=== PATIENT | male | born 1955 | race Caucasian/White ===

== ENCOUNTER → 2018-08-13 | Outpatient (CLI) | payer MEDICARE, MEDICAID ==
[~2018-08-13] MED LIST: ATENOLOL 25 MG25 M1 PO; CENTRUM COMPLE1 EACH PO; CLONAZEPAM PO; ENDOCET 5-3251 EACH PO; FISH OIL 1,0001 EAC5 PO; GRAPE SEED100 MG PO; HYDROCODON-ACE1 EAC8 PO; LO-DOSE ASPIRIN81 M1 PO; LOPRESSOR 50 MG50 M1 PO; MEVACOR 20 MG T20 MG PO; NITROSTAT0.4 MG SL; SOMA250 MG PO; ZESTRIL10 MG PO
[2018-08-13 12:01] LABS: AMP/METHAMP Negative (Negative); BARBITURATES Negative (Negative); BENZODIAZEPINES Negative (Negative); COCAINE Negative (Negative); METHADONE Negative (Negative); OPIATES POSITIVE (Negative); PCP Negative (Negative); THC POSITIVE (Negative)
[2018-08-13 12:02] LABS: CHOLESTEROL 167 mg/dL (<200); HDL CHOLESTEROL 32 mg/dL (>40); LDL CHOLESTEROL 87 mg/dL (<100); TC:HDL 5.2 Ratio (Not establshd); TRIGLYCERIDE 243 mg/dL (<150); VLDL 49 mg/dL (<40)
[2018-08-13 12:03] LABS: SERUM ASSESSMENT Clear
== END ==
LOC: M.LAB 11:38
PROVIDERS: Internal Medicine Cardiovascular Disease
DX: E78.2 Mixed hyperlipidemia (principal); G89.4 Chronic pain syndrome; I10 Essential (primary) hypertension; Z79.891 Long term (current) use of opiate analgesic

== ENCOUNTER 2020-03-22 20:12 | Inpatient (IN) | payer MEDICARE, MEDICAID ==
[~2020-03-22] VITALS: Ht 177.8 cm; Wt 81.6 kg
--- NOTE | ~2020-03-22 | EMS ---
[facility] [place] [address] EMS Patient Care Report Name: CORINNE NICHOLSON Room: [address] IN ..#: [id number] Admission: 03/22/20 Attend Phys: Prabhakar Do MD Discharge: Date of : 53 Report #: [id number] THIS REPORT FOR: //name// Report Transmitted: 03/23/2020 06:47 EMS Care Summary [facility] - Ambulance Incident [id number] @ 03/22/2020 15:35 Incident Location [address] [facility] Patient CORINNE NICHOLSON Male, 64 Years 1955 Patient Address [address] [place] [address] Patient History Hypertension (HTN),Cardiac - Stent, Patient Allergies Other drug allergy,Simvastatin, Patient Medications Hydrocodone, Metoprolol, Clopidogrel, Lisinopril, Zolpidem, Carisoprodol, Chief Complaint CHEST PAIN Disposition Transported No Lights/[place] Dispatch Reason Transfer/Interfacility/Palliative Care Transported To [facility] Narrative SUBJECTIVE- PATIENT WAS SEEN AT [facility] ER AND ADMITTED FOR CHEST PAIN. AFTER HAVING CHEST PAIN ON THE FLOOR FOR THE SECOND TIME PATIENT WAS PLACED ON A NTG DRIP AT 1.5ML/HR AND MOVED TO ICU. PATIENT IS NOW PAIN FREE AND IS BEING TRANSFERRED TO [facility] FOR CONTINUED CARE. [facility] [address] [place] [address] EMS Patient Care Report Name: CORINNE NICHOLSON Room: [address] IN [facility]#: [id number] Admission: 03/22/20 Attend Phys: Prabhakar Do MD Discharge: Date of : 53 Report #: [id number] OBJECTIVE- FOUND PATIENT IN ICU ROOM. PATIENT IS ALERT AND IN NO DISTRESS. PATIENT HAS AN IV IN THE LEFT ARM AND IS ON A NTG DRIP AT 1.5ML/HR. ASSESS- PATIENT IS ALERT AND ORIENTED, SKIN WARM AND DRY, COLOR NORMAL, CAP REFILL LESS THAN TWO. NO CHEST PAIN, NO SOB, NO ABDOMINAL PAIN, LUNGS ARE CLEAR AND PUPILS ARE NORMAL. PLAN- RECEIVED PAPERWORK AND REPORT FROM RN. MADE PATIENT CONTACT. PATIENT WAS ABLE TO WALK A SHORT DISTANCE TO OUR STRETCHER WHERE HE WAS SECURED WITH ALL STRAPS. WE DID VITALS, O2 SAT, EKG(SR), CONTINUED THE NITRO DRIP DIRECTED. DURING TRANSPORT PATIENT RESTED WITH NO COMPLAINTS. UPON ARRIVAL AT [facility] THERE WAS NO CHANGE IN PATIENT CONDITION. GAVE PAPERWORK AND REPORT TO RN AND TURNED PATIENT OVER. Initial Vitals @19:59P: 74,R: 18,BP: 146/75,GCS: 15,SpO2: 98,Revised Trauma: 12, @19:11P: 65,R: 17,BP: 163/75,GCS: 15,SpO2: 96,Revised Trauma: 12, @18:34P: 62,R: 18,BP: 167/77,GCS: 15,SpO2: 97,Revised Trauma: 12, @19:38P: 63,R: 18,BP: 145/75,GCS: 15,SpO2: 97,Revised Trauma: 12, Assessments @18:25MENTAL:Time Oriented,Person Oriented,Event Oriented,Place Oriented,SKIN:HEENT:LUNG SOUNDS:ABDOMEN:PELVIS//GI:EXTREMITIES:Left Arm: No Abnormalities,Right Arm: No Abnormalities,Left Leg: No Abnormalities,Right Leg: No Abnormalities,PULSE:Radial: 2+ Normal,NEURO: Impression Chest Pain / Discomfort Procedures @18:25ALS AssessmentResponse: UnchangedSucceeded@[facility] cc () @18:353-Lead ECGResponse: UnchangedSucceeded@PTANitro Infusion - 1.5 - Intravenous Pump@18:30StretcherResponse: Unchanged Timeline BRIAR WOOD SORTER, cc Site: , [facility],Nitro Infusion - 1.5 - Intravenous Pump, 15:33,Call Received 15:35,Dispatched 18:13,En Route 18:15,On Scene 18:25,At Patient 18:25,ALS Assessment,Response: UnchangedSucceeded, 18:30,Stretcher,Response: Unchanged 18:34,BP: 167/77 M,PULSE: 62,RR: 18 R,SPO2: 97 Ox,ETCO2: ,BG: ,PAIN: ,GCS: 15, 18:35,3-Lead ECG,Response: UnchangedSucceeded, [place] [address] EMS Patient Care Report Name: CORINNE NICHOLSON Room: [address] IN [facility]#: [id number] Admission: 03/22/20 Attend Phys: Prabhakar Do MD Discharge: Date of : 53 Report #: [id number] 18:40,Depart Scene 19:11,BP: 163/75 M,PULSE: 65,RR: 17 R,SPO2: 96 Ox,ETCO2: ,BG: ,PAIN: ,GCS: 15, 19:38,BP: 145/75 M,PULSE: 63,RR: 18 R,SPO2: 97 Ox,ETCO2: ,BG: ,PAIN: ,GCS: 15, 19:59,BP: 146/75 M,PULSE: 74,RR: 18 R,SPO2: 98 Ox,ETCO2: ,BG: ,PAIN: ,GCS: 15, 20:10,At Destination 20:20,Transfer Patient 20:40,Call Closed 22:20,In District Disclaimer v1.1 Copyright 2020 [employer] This EMS Care Summary contains data elements from the applicable legal record (which may be displayed differently). It is designed to provide pertinent information for the following purposes: continuity of care, clinical quality, and state data reporting. The complete legal record is available to ED staff and administrators of the receiving hospital in [employer]'s Patient Tracker. All data is provided "as is."
[~2020-03-22 20:12] MED LIST changes: +CLONAZEPAM 0.50.5 M1 PO; -CLONAZEPAM PO; -GRAPE SEED100 MG PO; +GRAPE SEED50 MG PO; -LOPRESSOR 50 MG50 M1 PO; +LOPRESSOR50 PO; +LOVASTATIN 20 M20 MG PO; -MEVACOR 20 MG T20 MG PO
[2020-03-22 21:00] VITALS: BP 179/86
[2020-03-23] VITALS (15 sets, daily range): BP systolic 120–189; BP diastolic 59–88
[2020-03-23 04:13] LABS: MCH 30.5 pg (26.0-34.0); MCHC 33.4 g/dL (28.0-37.0); MCV 91.1 fL (80.0-100.0); MPV 8.3 fl. (7.2-11.1); RBC 4.61 mil/uL (4.50-6.00); RDW-CV 13.9 % (10.5-14.5); WBC 10.2 thou/uL (4.0-11.0)
[2020-03-23 04:59] LABS: ALBUMIN 3.5 g/dL (3.4-5.0); ALKALINE PHOSPHATASE 62 U/L (46-116); ANION GAP 8 mmol/L (7-16); BUN 12 mg/dL (7-18); CALCIUM 8.4 mg/dL (8.5-10.1); CHLORIDE 103 mmol/L (98-107); CO2 29 mmol/L (21-32); CREATININE 0.9 mg/dL (0.6-1.3); GLUCOSE 82 mg/dL (70-99); POTASSIUM 3.7 mmol/L (3.5-5.1); SGOT 16 U/L (15-37); SGPT 30 U/L (30-65); SODIUM 140 mmol/L (136-145); TOTAL BILIRUBIN 0.4 mg/dL (<0.1-1.0); TOTAL PROTEIN 7.2 g/dL (6.4-8.2); TROPONIN-I LEVEL <0.06 ng/mL (<0.06)
--- NOTE | 2020-03-23 05:43 | NUR ---
ASSESSMENT: PT TRANSFERRED FROM [place] IN [place] TO ROOM 214 AT APPROXIMATELY 2100. PT IS ALERT AND ORIENT TIMES FOUR. DENIES CP AT THIS TIME. SUNSHINE, UP AD JASPAL. BP WAS ELEVATED UPON ARRIVAL THEN DECREASED TO 124/70. DR. LONGORIA WAS NOTIFIED OF PT'S ARRIVAL. LABS WERE ORDERED. PT NPO AT ID FOR POSSIBLE CATH WITH [facility] FERRER TROP WAS NEGATIVE THIS AM. RECENT WA IN JAN 2020, CARE WAS DONE AT [facility]. CABG X FIVE IN 2010. SR PER MONITOR, DOES HAVE A LONG HX OF SMOKING AND BACK SURGERIES. PLEASANT INDIVIDUAL AWAITING SOME ANSWERS. DID NOT SLEEP WELL DURING THE NIGHT R/T PT NORMALLY TAKES SLEEP AIDS. MOST AM LABS WERE WNL. WILL CONTINUE TO MONITOR.
--- NOTE | 2020-03-23 12:37 | NUR ---
Pt is A&O. Resides at home with his . assists as needed, Pt has some herniated discs in lower back and a spinal plate between 5 and 6. Pt has a cane for mobility. No hx of HH or SNF. Goal [place]. Pt having a heart cath today. Pt's PCP is Dr Natalie Jacobs. Following.
--- NOTE | 2020-03-23 12:50 | NUR ---
RECIEVED REPORT AROUND 0730. [facility]. VS AND ASSESSMENT CHARTED. PT LYING IN BED. PT WENT TO CATH THIS AM. GAVE SABRINA RODRIGUEZ NS. SHE STARTED NEW IV IN LEFT WRIST. LEFT AC IV TAKEN OUT. HEART MONITOR ATTACHED AT . NO STENTS PLACED. PT ON BEDREST UNITL 1600 THEN UP ADLIB. POST CATH VS CHARTED. RIGHT GROIN SITE DRY, INTACT. NO COMPLAINTS OF PAIN. MEDS GIVEN PER MAR. CALL LIGHT WITHIN REACH. WILL CONTINUE TO MONITOR.
--- NOTE | 2020-03-23 17:56 | CARD ---
[address] [address] CARDIAC CATH REPORT Name: LYNCORINNE L Room: [address] IN [facility]#: [id number] Admission: 03/22/20 Attend Phys: Prabhakar Do MD Discharge: Date of : 53 Report #: [id number] THIS REPORT FOR: //name// cc: JOLENE - Cookie family physician/PCP JOLENE - Family physician unknown ~ APPROVED REPORT Study performed: 03/23/2020 08:21:25 Patient Details Patient Status: In-Patient Room #: The patient is a 64 year-old male Event Personnel Alex Holland Space Control Supervisor, Gordon Tillman Childers, James APPELLATE COURT JUDGE monitor RN Janette, Eagle Becerril APPELLATE COURT JUDGE scrub Procedures Performed cardiac cath Indication Abnormal ECG, Unstable angina , Chest pain Risk Factors Coronary Artery Disease Previous Procedures/Diagnoses Previous CABGPrevious PCI Procedure Narrative The patient was brought electively to the Cardiac Catheterization Laboratory and was prepped and draped in a sterile manner. The right femoral was infiltrated with 1% Lidocaine subcutaneous anesthesia. A [place] 6fr sheath was inserted into the right femoral artery. Coronary angiography was performed using coronary diagnostic catheters. The right coronary system was accessed and visualized with a Diagnostic - JR4 catheter. The left coronary system was accessed and visualized with a Diagnostic - JL4 catheter. The left ventricle was accessed and visualized with a Diagnostic - ANG PIG catheter. Left ventricular/Aortic Valve gradient assessed via catheter pullback. Left ventriculogram was performed in SANTOS projection. Closure device was deployed with a 6 Fr Mynx. The patient tolerated the procedure well and there were no complications associated with the procedure. There was no hematoma. LCB utilized for the SVG to the Diag, OM1, OM2. ALVARADO graft was visualized with [place] [address] CARDIAC CATH REPORT Name: CORINNE NICHOLSON Room: [address] IN [facility]#: [id number] Admission: 03/22/20 Attend Phys: Prabhakar Do MD Discharge: Date of : 53 Report #: [id number] the RCA was located with a JR4 catheter. Intraoperative Conscious Sedation Sedation start time: 1056 Case end Time: 1136 Fentanyl 50 mcg Versed 3 mg Fluoro Time: 5.9 minutes Dose: DAP 67667 cGycm2 854 mGy Contrast Type and Amount: Omnipaque 120 ml Coronary Angiography The patient's coronary anatomy is right dominant. [place] Artery Percent Stenosis Patent ALVARADO graft to the mid lad. Collaterals were noted from the lad to the distal rca. Patent SVG to a diagonal branch of the lad with a jump graft to the proximal and distal OM branches of the circumflex. Patent stents were noted in the ostium of the SVG, and in the sequential jump graft to the distal marginal branch. There was a 60% stenosis noted in the mid portion of the vein graft. Collateral were noted from the circumflex to the distal RCA. 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 Right Coronary chronically occluded proximally after the conus branch. Bridging collaterals were noted to the distal RCA Left Ventriculography The left ventricle is normal in size with normal contractility. The left ventricular ejection fraction is estimated to be 60-65%. Left ventricular wall motion abnormalities are not present. There is no mitral insufficiency. Hemodynamics The aortic pressure is 170/64 mmHg with a mean of 75 mmHg. The left ventricular pressure is 157/5 mmHg with a mean of mmHg. The left ventricular end diastolic pressure is 10 mmHg. There was no gradient across the aortic valve upon pullback. Pullback from the left ventricle to the aorta revealed no gradient [place] [address] CARDIAC CATH REPORT Name: ALE NICHOLSONKENNETH Jarrett Room: [address] IN [facility]#: [id number] Admission: 03/22/20 Attend Phys: Prabhakar Do MD Discharge: Date of : 53 Report #: [id number] Conclusion 1. Chronic occlusion of the [place] LAD, Circumflex, and RCA 2. Patent ALVARADO graft to the mid lad with collaterals to the RCA 3. Patent SVG to the diagonal branch with a sequential jump graft to 2 marginal branches of the circumflex. Patent stents were noted in the ostium of the SVG and in the distal SVG. 4. Chronic occlusion of the SVG to the RCA 5. LVEF 60-65% Recommendations If patient continues to have frequent angina despite maximal medical therapy, consider referral for attempted PTCA and stenting of the chronically occluded RCA. <ELECTRONICALLY SIGNED> By: Alex Holland MD, [facility] 03/23/201754 54 54Dakal Holland MD, [facility] /INF
--- NOTE | 2020-03-23 18:51 | NUR ---
PT UP ADLIB NOW. POST CATH VITALS CHARTED. GROIN SITE DRY, CLEAN, INTACT. PT LYING IN BED. VISITED THIS SHIFT. PT INSTRUCTED STAFF ABOUT PAIN MEDS AND HOW HE TAKES THEM AT HOME. PT GOT IT CLEARED WITH PRIMARY DR TO TAKE SOMA AND HYDROCODONE. IV INTACT. HEART MONITOR ATTACHED. POSSIBLE DISCHARGE TOMORROW. HOURLY ROUNDING PERFORMED. MEDS PER MAR. CALL LIGHT WITHIN REACH. WILL CONTINUE TO MONITOR.
--- NOTE | 2020-03-23 20:00 | NUR ---
RECEIVED REPORT AND ASSUMED CARE OF PT, ASSESSMENT COMPLETED. RT GROIN INTACT, NO REDNESS OR HEMATOMA, SCANT AMT OLD DRAINAGE. INSTRUCTED ON MONITORING RT GROIN SITE AFTER AMBULATION OR MOVING ABOUT IN BED FOR DRAINAGE OR HEMATOMA. TELEMETRY ON SHOWING SR. WILL CONT TO MONITOR AND ASSIST NEEDED.
[2020-03-24] VITALS: BP 116/44
[2020-03-24 04:00] VITALS: BP 114/62
[2020-03-24 04:10] LABS: CHOLESTEROL 172 mg/dL (<200); HDL CHOLESTEROL 34 mg/dL (>40); LDL CHOLESTEROL 111 mg/dL (<100); TC:HDL 5.1 Ratio (Not establshd); TRIGLYCERIDE 136 mg/dL (<150); VLDL 27 mg/dL (<40)
[2020-03-24 04:14] LABS: SERUM ASSESSMENT Clear
--- NOTE | 2020-03-24 05:51 | NUR ---
SLEPT WELL TONIGHT. GAIT STEADY TO AND FROM BR INDEPENDENTLY. RT GROIN REMAINS WITHOUT REDNESS, DRAINAGE, OR HEMATOMA. DENIES CHEST PAIN. PO MEDS EFFECTIVE FOR CHRONIC NECK AND BACK PAIN. TELEMETRY CONT TO SHOW SR TO SB. HS GOALS OF REST AND SAFETY ACHIEVED. HOURLY ROUNDING OBSERVED.
[2020-03-24 07:30] VITALS: BP 152/74
[2020-03-24] MEDS ORDERED: LISINOPRIL20 MG PO (09:26)
[2020-03-24] MEDS ORDERED: LIPITOR 40 MG T40 M1 PO (09:26)
[2020-03-24] MEDS ORDERED: IMDUR 60 MG TAB60 M1 PO (09:26)
[2020-03-24] MEDS ORDERED: NORVASC5 MG PO (09:26)
[2020-03-24] MEDS ORDERED: PLAVIX 75 MG TA75 M1 PO (09:26)
[2020-03-24 11:42] VITALS: BP 168/64
[2020-03-24 12:03] VITALS: BP 168/64
--- NOTE | 2020-03-24 13:47 | CON ---
[address] [address] CONSULTATION Name: CORINNE NICHOLSON Room: [address] IN .R.#: [id number] Admission: 03/22/20 Attend Phys: Prabhakar Do MD Discharge: 03/24/20 Date of : 53 Report #: [id number] THIS REPORT FOR: //name// cc: JOLENE - No family physician/PCP FAM - Family physician unknown ~ DATE OF SERVICE: 03/23/2020 CARDIOLOGY CONSULTATION HISTORY OF PRESENT ILLNESS: The patient is a 64-year-old white male who I was asked to see in the hospital today after he complained of chest pain. The patient has an extensive and complicated past medical history. He initially presented in 2010 with chest pain. He was found to have multivessel coronary artery disease and underwent 5-vessel bypass surgery at [facility] that apparently included a ALVARADO graft. He has been followed by Dr. Iyer since that time. He apparently had a heart attack this summer and was transferred to [facility]. He apparently had a heart catheterization from the femoral artery and had 4 stents placed. Apparently, there were plans to perform additional stenting, but decided to treat him medically. The patient has done well since his discharge. According to the records at [facility], the heart catheterization was performed on 01/06. He was found to have MONTESSORI PARAPROFESSIONAL of the right coronary artery as well as an occluded vein graft to the right coronary artery. The initial attempt was performed for the right radial artery. Again, the vein graft to the right coronary artery is chronically occluded. The right coronary artery itself apparently had a 99% ostial stenosis. Apparently, this vein graft which was to diagonal and to marginal branches. There was also stenosis and jump graft between the marginal branches. It was then decided to proceed with revascularization of the vein graft rather than MONTESSORI PARAPROFESSIONAL of the right coronary artery. Four stents were placed. The recanalization of the vein graft to the diagonal and marginal branches were felt to be successful. He also underwent stenting of the ostial vein graft to the circumflex as well as a stent in the jump graft between the diagonal and the circumflex. He was discharged on Plavix and aspirin. Left ventriculogram was not performed at that time. The left main artery had a 50% stenosis. The LAD is completely occluded. Circumflex was completely occluded. The right coronary artery is completely occluded. The vein graft to the right coronary artery is completely occluded. The vein graft to the circumflex had a ostial stenosis. There was a patent ALVARADO graft to the LAD. The OBED was injected, but apparently was not used for his bypass surgery. The patient states he has done well since his discharge until 2 days ago. He had some chest pain, went into his jaw and arms, felt short of breath, took nitroglycerin, which did not seem to help. He called the ambulance and was taken to [facility]. He had borderline troponin elevation. He was transferred to [facility] yesterday for further evaluation and treatment. He denies a history of exertional dyspnea, palpitation, syncope, or peripheral edema, fever, [place] [address] CONSULTATION Name: CORINNE NICHOLSON Room: [address]#: [id number] Admission: 03/22/20 Attend Phys: Prabhakar Do MD Discharge: 03/24/20 Date of : 53 Report #: [id number] PAST MEDICAL HISTORY: He has had cervical fusion. He has a history of hypertension, hyperlipidemia. CURRENT MEDICATIONS: Include amlodipine, aspirin, Lipitor, Plavix, Imdur, lisinopril, metoprolol. ALLERGIES: HE HAS INTOLERANCE TO SIMVASTATIN, CYCLOBENZAPRINE. FAMILY HISTORY: His father had a heart attack. SOCIAL HISTORY: He is . He is on disability secondary to chronic back pain. He used to work in [employer]. He continues to smoke a half pack of cigarettes a day. He has a history of alcohol abuse, but no longer abuses alcohol. REVIEW OF SYSTEMS: He has had no history of stroke, asthma, liver disease, GI bleeding, kidney disease, cancer, psychiatric illness, chronic skin condition. PHYSICAL EXAMINATION: GENERAL: Revealed a middle-aged male, lying in bed. He appeared in no acute distress. VITAL SIGNS: He had a blood pressure of 130/70, pulse 60. He was afebrile. HEENT: He is anicteric. Conjunctivae are pink. Mucous membranes moist. NECK: Veins nondistended. No carotid bruits. Neck supple. CHEST: Clear to auscultation. CARDIOVASCULAR: Regular rate and rhythm without murmurs. ABDOMEN: Soft. EXTREMITIES: Had no edema. Posterior tibial pulse 2+ bilaterally. SKIN: Cool and dry. NEUROLOGIC: Nonfocal. RADIOLOGICAL DATA: His ECG showed sinus rhythm. LABORATORY WORK: Sodium 140, creatinine 0.9. His troponin at [facility] was 0.06. His white blood cell count 10.2, hemoglobin 14.0. Her COVID antigen was not detected. The patient had an echocardiogram in 2018 which showed normal ejection fraction. IMPRESSION AND RECOMMENDATIONS: 1. Acute coronary syndrome. The patient had 4 stents placed 6 weeks ago. Recommend repeat cardiac catheterization. He is noted to have a chronically occluded saxman right coronary as well vein graft to the right coronary artery. 2. Hypertension. The patient is on a calcium helena, JAMAL inhibitor, and beta helena. 3. Hyperlipidemia. The [place] [address] CONSULTATION Name: LYNCORINNE Room: [address] IN .R.#: [id number] Admission: 03/22/20 Attend Phys: Prabhakar Do MD Discharge: 03/24/20 Date of : 53 Report #: [id number] 4. Tobacco abuse. 5. History of alcohol abuse. 6. Chronic back pain. <ELECTRONICALLY SIGNED> By: Alex Holland MD, FACC 03/24/20 1347 [id number] Holland MD, FACC /nt
== END 2020-03-24 12:54 | disposition home or self-care (01) | DRG 287 ==
LOC: M.2W 20:12
PROVIDERS: Internal Medicine Cardiovascular Disease; ADMIT Internal Medicine; ATTEND Internal Medicine
DX: I24.9 Acute ischemic heart disease, unspecified (principal); I16.1 Hypertensive emergency; T82.858A Stenosis of other vascular prosthetic devices, implants and grafts, initial encounter; I25.110 Atherosclerotic heart disease of native coronary artery with unstable angina pectoris; I10 Essential (primary) hypertension; F10.20 Alcohol dependence, uncomplicated; E78.5 Hyperlipidemia, unspecified; Y83.8 Other surgical procedures as the cause of abnormal reaction of the patient, or of later complication, without mention of misadventure at the time of the procedure; Y90.9 Presence of alcohol in blood, level not specified; F17.210 Nicotine dependence, cigarettes, uncomplicated; G89.29 Other chronic pain; M54.9 Dorsalgia, unspecified; Z20.828 Contact with and (suspected) exposure to other viral communicable diseases; I25.2 Old myocardial infarction; Z90.49 Acquired absence of other specified parts of digestive tract; Z95.5 Presence of coronary angioplasty implant and graft; Z79.899 Other long term (current) drug therapy; Z79.82 Long term (current) use of aspirin; Y92.89 Other specified places as the place of occurrence of the external cause; Z98.1 Arthrodesis status; Z88.8 Allergy status to other drugs, medicaments and biological substances; Z23 Encounter for immunization

== ENCOUNTER → 2020-11-13 | Outpatient (CLI) | payer MEDICARE, MEDICAID ==
[~2020-11-13] MED LIST changes: +IMDUR 60 MG TAB60 M1 PO; +LIPITOR 40 MG T40 M1 PO; +LISINOPRIL20 MG PO; +NORVASC5 MG PO; +PLAVIX 75 MG TA75 M1 PO
== END ==
LOC: M.LAB 11:27
PROVIDERS: ATTEND Internal Medicine Cardiovascular Disease
DX: I10 Essential (primary) hypertension (principal); E78.2 Mixed hyperlipidemia